=== PATIENT | male | born 1980 | race Caucasian/White ===

== ENCOUNTER 2019-06-09 01:21 | Emergency (ER) | payer OTHER ==
[~2019-06-09] VITALS: Ht 195.6 cm; Wt 109.8 kg
[~2019-06-09 01:21] MED LIST: OXYCODONE HCL10 MG PO
--- OUTSIDE RECORDS SUMMARY | 2019-06-09 01:24 | XMS ---
PreManage Notification: PETE DAY [employer] Events No recent Security Events currently on file [facility] MET [facility] There are no care providers on record at this time. Keith has no Care Guidelines for this patient. [facility] VISIT COUNT (12 MO.) 1 MYRA [facility] TOTAL 1 NOTE: Visits indicate total known visits. ED/UCC VISIT TRACKING (12 MO.) 06/09/2019 01:21 [facility] [place] TYPE: Emergency COMPLAINT: - LUMP IN THROAT/ANXIETY SYMPTOMS INPATIENT VISIT TRACKING (12 MO.) No inpatient visits to display in this time frame [email or web address]
[2019-06-09] MEDS ORDERED: LORAZEPAM1 MG PO (01:32)
[2019-06-09] MEDS ORDERED: OXYCONTIN10 MG PO (01:35)
[2019-06-09] MEDS ORDERED: PAXIL20 MG PO (01:35)
[2019-06-09] MEDS ORDERED: OXYCODONE HCL10 MG PO (01:37)
== END 2019-06-09 02:00 | disposition home or self-care (01) ==
LOC: ED 01:21
DX: F41.0 Panic disorder [episodic paroxysmal anxiety] (principal); F17.200 Nicotine dependence, unspecified, uncomplicated; Z79.899 Other long term (current) drug therapy
CPT/HCPCS: 99283

== ENCOUNTER 2022-08-19 16:31 | Emergency (ER) | payer OTHER ==
[~2022-08-19] VITALS: Ht 195.6 cm; Wt 106.0 kg
[~2022-08-19 16:31] MED LIST changes: +LORAZEPAM1 MG PO; +OXYCONTIN10 MG PO; +PAXIL20 MG PO
[2022-08-19] MEDS ORDERED: HYDROCODON-ACE1 EA10 PO (19:29)
[2022-08-19] MEDS ORDERED: DOXYCYCLINE HY100 MG PO (19:29)
[2022-08-19 20:22] VITALS: BP 142/89
== END 2022-08-19 20:35 | disposition home or self-care (01) ==
LOC: ED 16:31
DX: N45.1 Epididymitis (principal); F17.200 Nicotine dependence, unspecified, uncomplicated
CPT/HCPCS: 76870; 81003; 96372; 99284-25; A9270; J0696

== ENCOUNTER 2024-08-25 21:25 | Emergency (ER) | payer OTHER ==
[~2024-08-25] VITALS: Ht 195.6 cm; Wt 103.3 kg
[~2024-08-25 21:25] MED LIST changes: +DOXYCYCLINE HY100 MG PO; +HYDROCODON-ACE1 EA10 PO
[2024-08-25] MEDS ORDERED: DIPHTH,PERTUSS(ACELL),TET VAC 0.5 ML SYRINGE IM ONE (22:00)
[2024-08-25 22:13] VITALS: BP 147/97
== END 2024-08-25 22:13 | disposition home or self-care (01) ==
LOC: ED 21:25
DX: S61.511A Laceration without foreign body of right wrist, initial encounter (principal); F43.10 Post-traumatic stress disorder, unspecified; F17.200 Nicotine dependence, unspecified, uncomplicated; W26.9XXA Contact with unspecified sharp object(s), initial encounter; Z23 Encounter for immunization
CPT/HCPCS: 12001; 90471; 90715; 99282-25